=== PATIENT | male | born 1950 | race Caucasian/White ===

== ENCOUNTER → 2024-05-07 12:39 | Outpatient (CLI) | payer MEDICARE, OTHER, SELFPAY ==
--- NOTE | 2024-05-07 12:45 | EKG_ITS ---
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
[2024-05-07 14:04] LABS: Add Manual Diff / Slide Review NO; Basophils Absolute Auto 0 /uL (0-100); Basophils Percent Auto 0.4 % (0-2); Eosinophils Absolute Auto 200 /uL (0-450); Hematocrit 43.1 % (41-53); Lymphocytes Absolute Auto 1900 /uL (1100-4500); Lymphocytes Percent Auto 23.9 % (25-40); Mean Corpuscular HGB Conc 34.7 % (30-36); Mean Corpuscular Hemoglobin 31.2 PG (26-34); Mean Corpuscular Volume 89.8 fL (80-100); Monocytes Absolute Auto 700 /uL (0-900); Monocytes Percent Auto 9.1 % (3-14); Neutrophils Absolute Auto 5000 /uL (1500-7000); Neutrophils Percent Auto 64.6 % (50-75); Platelet Count 375 X10^3/uL (150-400); Red Cell Distribution Width 13.9 % (11.6-14.8); White Blood Cell Count 7.7 X10^3/uL (4.5-11.0)
[2024-05-07 14:06] LABS: Hemoglobin A1C% w Est Avg Glu 5.3 % (4.0-6.0)
[2024-05-07 14:16] LABS: Albumin 4.6 g/dL (3.5-5.0); BUN Creatinine Ratio 16.4 (6-22); Blood Urea Nitrogen 19 mg/dL (9-20); Calcium 9.6 mg/dL (8.4-10.2); Carbon Dioxide 29 mmol/L (22-32); Chloride 99 mmol/L (98-107); Estimated Glomerular Filt Rate > 60 mL/min (>60); Glucose 103 mg/dL (80-110); HEMOLYSIS < 15 (0-50); Potassium 3.7 mmol/L (3.4-5.1); Sodium 137 mmol/L (137-145)
[2024-05-07 14:27] LABS: Prealbumin 31.7 mg/dL (17.6-36.0)
[2024-05-07 14:55] LABS: Vitamin D 25 Hydroxy (D3) 16.5 ng/mL (30.0-100.0)
== END ==
PROVIDERS: PCP Registered Nurse; Referring Provider Orthopaedic Surgery Adult Reconstructive Orthopaedic Surgery; Visit Provider Orthopaedic Surgery Adult Reconstructive Orthopaedic Surgery
DX: Z01.818 Encounter for other preprocedural examination (principal); R73.9 Hyperglycemia, unspecified; E55.9 Vitamin D deficiency, unspecified; Z01.812 Encounter for preprocedural laboratory examination; R77.0 Abnormality of albumin
CPT/HCPCS: 36415; 80048; 82040; 82306; 83036; 84134; 85025; 93005

== ENCOUNTER 2025-02-24 12:07 | Emergency (ER) | payer MEDICARE, OTHER, SELFPAY ==
[2025-02-24] VITALS (9 sets, daily range): BP systolic 138–169; BP diastolic 73–91; PULSE 68–83; RESP 12–19; TEMP 36.6; O2SAT 96–98; BMI 31.6
--- NOTE | 2025-02-24 12:51 | EKG_ITS ---
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
--- NOTE | 2025-02-24 14:30 | DI.RAD.S_ITS ---
PROCEDURE: XR CHEST 1V INDICATIONS: back pain to L arm TECHNIQUE: One view of the chest was acquired. COMPARISON: None. FINDINGS: Surgical changes and devices: None. Lungs and pleura: Lungs are clear. No pleural effusions or pneumothorax. Mediastinum: Mediastinal contours appear normal. Heart size is normal. Bones and chest wall: No suspicious bony lesions. Overlying soft tissues appear unremarkable. IMPRESSION: No acute cardiopulmonary abnormality is seen. Approved by: Milton Simpson M.D. on 02/24/2025 at 13:55
--- NOTE | 2025-02-24 15:33 | EKG_ITS ---
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
[2025-02-24 15:34] LABS: Add Manual Diff / Slide Review NO; Hematocrit 41.5 % (41-53); Hemoglobin 14.6 g/dL (13.5-17.5); Lymphocytes Absolute Auto 1500 /uL (1100-4500); Mean Corpuscular HGB Conc 35.3 % (30-36); Mean Corpuscular Hemoglobin 30.8 PG (26-34); Mean Corpuscular Volume 87.3 fL (80-100); Platelet Count 383 X10^3/uL (150-400)
[2025-02-24 15:42] LABS: Alanine Aminotransferase 27 IU/L (<50); Albumin 4.8 g/dL (3.5-5.0); Albumin Globulin Ratio 1.6 (1.0-2.8); Alkaline Phosphatase 58 U/L (38-126); Blood Urea Nitrogen 16 mg/dL (9-20); Calcium 9.2 mg/dL (8.4-10.2); Carbon Dioxide 24 mmol/L (22-32); Chloride 101 mmol/L (98-107); Estimated Glomerular Filt Rate > 60 mL/min (>60); Globulin 3.0 g/dL (1.7-4.1); Glucose 105 mg/dL (70-99); HEMOLYSIS < 15 (0-50); Lipase 104 U/L (23-300); Magnesium 1.8 mg/dL (1.6-2.3); Potassium 4.0 mmol/L (3.4-5.1); Sodium 135 mmol/L (137-145); Total Protein 7.8 g/dL (6.3-8.2)
[2025-02-24 15:54] LABS: NT-proBNP (BNP-Adult 18+) 23 pg/mL (<125); Troponin I < 0.012 ng/mL (0.01-0.034)
--- NOTE | 2025-02-24 16:23 | ED.BACK ---
HPI - Back Pain/Injury General Chief Complaint: Back Pain/Injury Stated Complaint: bad back and shoulder pain more on lt side t-3 Time Seen by Provider: 02/24/25 14:29 Source: patient Limitations: no limitations History of Present Illness HPI Narrative: 74-year-old male history of hypertension, prediabetes with a complaint of thoracic back pain radiating to the left axilla. Patient states pain started about 3 days ago he does note that there seems like there is a knot. He states it radiates a little bit to the front but is less intense. Patient states flexion of the back rotation side bending and make it worse extension makes it feel better. He notes he did stop riding a recumbent bike and switch to an elliptical recently but denies any other trauma or injuries. He states no shortness of breath. No fevers or chills. No cold cough congestion symptoms. No nausea or vomiting. No new rash or skin changes no new numbness tingling or weakness. No new swelling in extremities. Pain does not radiate down his arm. Has not had any syncope. Home medications include losartan which he states he recently increased from 25-50 mg because his blood pressure was consistently over 130, Lexapro and metformin. He does not take any aspirin or anticoagulants. He states he has a knee surgery in June, he had a colonoscopy on February 11 which was uneventful and negative. Warts an allergy to iodine. No tobacco, alcohol or recreational drugs. Notes he had a cardiac catheterization 2008 which was negative he had had a stress test after that states he has a no known family history of cardiac, embolic or vascular disease. Related Data Home Medications ?Medication ?Instructions ?Recorded ?Confirmed escitalopram oxalate 10 mg tablet 10 mg PO DAILY 10/11/24 02/05/25 (Lexapro) metformin 500 mg tablet 500 mg PO BID 10/11/24 02/05/25 losartan 25 mg tablet 25 mg PO DAILY 02/05/25 02/05/25 Allergies Allergy/AdvReac Type Severity Reaction Status Date / Time ciprofloxacin Allergy Mild pts father Verified 02/24/25 12:42 from drug iodine AdvReac Intermediate Rash Verified 02/24/25 12:42 Review of Systems Review of Systems ROS Unobtainable: All systems reviewed & are unremarkable except as noted in HPI and below Patient History Surgical History Status post left partial knee replacement Social History Smoking Status: Never smoker Smoking Status: Never smoker Exam Narrative Exam Narrative: GENERAL: Alert and oriented x three, male in mild distress HEENT: Head normocephalic, atraumatic, EOMI, pupils reactive, face symmetric, moist mucous membranes NECK: Supple, full range of motion CARDIOVASCULAR: Regular rate and rhythm without murmurs, rubs or gallops. RESPIRATORY: Breath sounds equal bilaterally, no wheezes rales or rhonchi. ABDOMEN: Soft, nontender. Normoactive bowel sounds all 4 quadrants. No guarding or rebound, rigidity, no mass : No CVA tenderness BACK: No cervical, thoracic or lumbar vertebral point tenderness. Patient has a palpable knot lateral to the thoracic spine around T7-8 does have an increase in pain with palpation. No warmth erythema, no swelling. Patient has normal range of motion. Patient's gait is normal. 5/5 muscle strength upper and lower extremities. Normal range of motion. Normal sensation. EXTREMITIES: Normal range of motion, no clubbing or edema. Neurovascularly intact NEUROLOGICAL: Cranial nerves II through XII grossly intact. Moving all extremities SKIN: Warm, dry, no petechiae, no rashes or lesions. Initial Vital Signs Initial Vital Signs: Vital Signs Temperature 97.9 F 02/24/25 12:42 Pulse Rate 79 02/24/25 12:42 Respiratory Rate 17 02/24/25 12:42 Blood Pressure 169/91 H 02/24/25 12:42 Pulse Oximetry 96 02/24/25 12:42 Oxygen Delivery Method Room Air 02/24/25 12:42 Course Orders Ordered: ED Orders 02/24/25 12:46 EKG-12 Lead Stat 02/24/25 14:30 XR chest 1V Stat [facility] Creatine Kinase MB Routine EKG-12 Lead Stat 02/24/25 15:23 Complete Blood Count AUTO DIFF Stat Comprehensive Metabolic Panel Stat Lipase Stat Magnesium Stat NT-proBNP (BNP-Adult 18+) Stat Troponin I Stat 02/24/25 17:20 Troponin I Stat 02/24/25 17:23 EKG-12 Lead Stat Discontinued Medications Acetaminophen (Acetaminophen 325 Mg Tablet) 975 mg PO NOW ONE Stop: 02/24/25 16:49 Last Admin: 02/24/25 16:58 Dose: 975 mg Documented By: SGF Vital Signs Vital signs: Vital Signs - 8 hr 02/24/25 12:42 02/24/25 15:19 02/24/25 15:23 Temperature 97.9 F Pulse Rate 79 73 Respiratory Rate 17 19 Blood Pressure 169/91 H 140/84 Pulse Oximetry 96 Oxygen Delivery Method Room Air 02/24/25 15:23 02/24/25 15:30 02/24/25 15:30 Temperature Pulse Rate 73 69 Respiratory Rate 12 16 Blood Pressure 138/76 Pulse Oximetry 98 97 Oxygen Delivery Method 02/24/25 16:00 02/24/25 16:00 02/24/25 16:30 Temperature Pulse Rate 71 Respiratory Rate 14 Blood Pressure 145/82 H 151/85 H Pulse Oximetry 98 Oxygen Delivery Method 02/24/25 16:30 02/24/25 17:00 02/24/25 17:00 Temperature Pulse Rate 70 83 Respiratory Rate 16 Blood Pressure 157/73 H Pulse Oximetry 96 97 Oxygen Delivery Method 02/24/25 17:20 02/24/25 17:20 02/24/25 17:30 Temperature Pulse Rate 68 69 Respiratory Rate Blood Pressure 140/80 Pulse Oximetry 96 96 Oxygen Delivery Method 02/24/25 17:30 Temperature Pulse Rate Respiratory Rate 16 Blood Pressure 151/76 H Pulse Oximetry Oxygen Delivery Method MDM - Back Pain/Injury Lab Data 02/24/25 15:23 02/24/25 15:23 Labs: Lab Results 02/24/25 02/24/25 Range/Units 15:23 17:20 WBC 9.4 (4.5-11.0) X10^3/uL RBC 4.75 (4.5-5.9) X10^6/uL Hgb 14.6 (13.5-17.5) g/dL Hct 41.5 (41-53) % MCV 87.3 (80-100) fL MCH 30.8 (26-34) PG MCHC 35.3 (30-36) % RDW 14.2 (11.6-14.8) % Plt Count 383 (150-400) X10^3/uL Neut % (Auto) 76.0 H (50-75) % Lymph % (Auto) 15.8 L (25-40) % [place] % (Auto) 6.9 (3-14) % Eos % (Auto) 0.5 L (2-4) % Baso % (Auto) 0.8 (0-2) % Neut # (Auto) 7100 H (3487-1798) /uL Lymph # (Auto) 1500 (5052-5094) /uL [place] # (Auto) 700 (0-900) /uL Eos # (Auto) 100 (0-450) /uL Baso # (Auto) 100 (0-100) /uL Sodium 135 L (137-145) mmol/L Potassium 4.0 (3.4-5.1) mmol/L Chloride 101 (98-107) mmol/L Carbon Dioxide 24 (22-32) mmol/L BUN 16 (9-20) mg/dL Creatinine 1.06 (0.66-1.25) mg/dL Estimated GFR > 60 (>60) mL/min BUN/Creatinine Ratio 15.1 (6-22) Glucose 105 H (70-99) mg/dL Calcium 9.2 (8.4-10.2) mg/dL Magnesium 1.8 (1.6-2.3) mg/dL Total Bilirubin 0.5 (0.2-1.3) mg/dL AST 36 (17-59) IU/L ALT 27 (<50) IU/L Alkaline Phosphatase 58 (38-126) U/L Troponin I < 0.012 < 0.012 (0.01-0.034) ng/mL NT-Pro-B Natriuret Pep 23 (<125) pg/mL Total Protein 7.8 (6.3-8.2) g/dL Albumin 4.8 (3.5-5.0) g/dL Globulin 3.0 (1.7-4.1) g/dL Albumin/Globulin Ratio 1.6 (1.0-2.8) Lipase 104 (23-300) U/L ECG Data Attestation: I personally reviewed and interpreted this ECG as follows: Prior ECG tracings: available for review Interpretation: Sinus rhythm rate of 77 [place] 144 QRS is 76 QTC of 434, no acute ST-elevation patient does have inverted slightly depressed T-waves in V3 through 6. Repeat EKG shows sinus rhythm premature atrial complex rate of 72 [place] 160 QRS is 76 QTC of 438, patient has persistent T-wave inversion in V4 5 6. This is present in patient's prior EKG from 05/07/2024. MDM Narrative Medical decision making narrative: Chest x-ray shows no acute cardiopulmonary abnormality. Labs show normal white count hemoglobin and platelets, chemistries shows sodium 135 otherwise normal electrolytes BUN creatinine glucose of 105 LFTs are negative troponins less than 0.012 with a BNP of 23. Repeat troponins less than 0.012 EKG sinus rhythm atrial complexes patient has T-wave inversion V4 5 6 present on prior EKG from 2023. 74-year-old male with reproducible pain on exam, suspect patient has a more musculoskeletal source has had 3 days of symptoms with negative cardiac workup, does have T-wave inversion but does not appear to be new. Patient has a acetaminophen Discharge Plan Departure Patient Disposition: Home Clinical Impression: Back pain, thoracic Instructions: DI for Thoracic Back Pain Activity Restrictions/Additional Instructions: Follow up as needed. Your symptoms today seem most likely musculoskeletal but if they are persisting please follow up. You can take acetaminophen a 1000 mg every 6 hours as needed. Please return if you have new or worsening symptoms, any rash or skin changes, new chest pain, new shortness of breath, fevers, passing out or other new or concerning changes. Prescriptions: No Action losartan 25 mg tablet 25 mg PO DAILY metformin 500 mg tablet 500 mg PO BID escitalopram oxalate [Lexapro] 10 mg tablet 10 mg PO DAILY Referrals: Jahaira Mitchell FNP-C [Primary Care Provider, Family Practice] Stand Alone Forms: Patient Portal/API
[2025-02-24] MEDS: ACETAMINOPHEN 325 MG TABLET 975 MG PO (16:58)
--- NOTE | 2025-02-24 17:23 | EKG_ITS ---
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
[2025-02-24 17:52] LABS: Troponin I < 0.012 ng/mL (0.01-0.034)
[2025-02-25 13:36] LABS: Labcorp Creatine Kinase MB 2.1 ng/mL (0.0-10.4)
== END 2025-02-24 18:23 | disposition home or self-care (01) ==
PROVIDERS: Emergency Provider Emergency Medicine; PCP Registered Nurse
DX: M54.6 Pain in thoracic spine (principal)
CPT/HCPCS: 36415; 71045; 80053; 82553; 83690; 83735; 83880; 84484; 85025; 93005; 99284

== ENCOUNTER 2025-03-20 06:47 | Day surgery (SDC) | payer MEDICARE, OTHER, SELFPAY ==
[2025-03-08 08:59] VITALS: BMI 31.6
[2025-03-20 07:07] VITALS: BP 144/86; PULSE 73; RESP 16; TEMP 36.3; O2SAT 95
[2025-03-20] MEDS: ACETAMINOPHEN 325 MG TABLET 975 MG PO (07:19)
[2025-03-20] MEDS: LACTATED RINGERS 1,000 ML 42 ML IV (07:19)
--- NOTE | 2025-03-20 08:24 | PM.PREOP ---
Pre-operative Note COVID-19 COVID-19 status: Not tested Interval Note History & Physical reviewed/Exam performed by Physician: Yes Changes to H&P: No
--- NOTE | 2025-03-20 09:23 | SUR.OPER ---
Supine on padded OR bed, head on pillow, arms secured on padded arm boards at <90 degrees abduction, left arm on arm board, prepped into field, legs uncrossed, safety belt at thigh, tape over blanket over lower legs.
[2025-03-20 10:00] VITALS: BP 126/72; PULSE 91; RESP 10; TEMP 36.7; O2SAT 94
--- NOTE | 2025-03-20 10:00 | P.OP_ITS ---
Operative Date/Time/Diagnoses Date of procedure: 03/20/25 Time of procedure: 08:58 Pre-op diagnosis: Left subluxing ulnar nerve at the elbow and left Carpal Tunnel Syndrome Post-op diagnosis: same Procedure & Clinicians Procedure: ) left Carpal Tunnel Release, Open 2) anterior transposition of ulnar nerve at the elbow Same procedure(s) as scheduled: Yes Surgeon: Yazmin Shahid Assisted?: Yes Continuous Miner: Giana Mas Anesthesia Type: General Operative Notes Findings: see below Closure Type: primary Specimen(s): none sent Applied: cast(s) (posterior splint) Estimated Blood Loss (mL): 5 Blood products transfused: none Tourniquet time (min): 50 Procedure in detail: Preoperative diagnosis: ?Left subluxing ulnar nerve at the elbow and left Carpal Tunnel Syndrome Procedure performed: ?1) Carpal Tunnel Release, Open 2) anterior transposition of ulnar nerve at the elbow Postoperative diagnosis: Same Primary Surgeon: Yazmin Shahid, DO Continuous Miner: Giana Mas PA-C Anesthesia: ?General EBL: 5 ml Tourniquet: 50 minutes @ 200 mmHg Indication For Surgery: Patient presented with signs and symptoms of carpal tunnel and cubital tunnel syndrome.? Conservative treatment did not result in adequate symptom improvement. The risks, benefits, and alternatives were discussed. Risks include pain, bleeding, infection, damage to nearby structures, pillar pain, wound healing complications, thumb weakness, numbness, lack of symptom relief, need for further surgery, DVT, PE, stroke, and . Written consent was obtained. Operative Findings: Thickened transverse carpal ligament was released.? No carpal tunnel masses. Subluxing ulnar nerve. Procedure in Detail: The patient was met in the pre-operative hold area. Consent was verified and operative extremity was signed. The patient then met with anesthesia and was brought back to the operating room. The patient was placed supine on the operating table. Anesthetic was administered. The extremity was then prepped and draped in the usual sterile fashion. A timeout was performed per protocol. An 8 cm incision was made at the medial aspect of the elbow centered between the medial epicondyle and olecranon.? Dissection was taken down to the cubital tunnel and the ulnar nerve was exposed and the cubital was released dissection was taken up proximally and to ensure that the ulnar nerve was completely released proximally and distally the nerve was traced into the flexor carpi ulnaris muscle belly the overlying fascia was released and I ensured that the nerve was free distally as well.? After complete release of the ulnar nerve I then ranged the elbow with flexion and extension and the nerve subluxed. I then made a subcutaneous adipose flap and an anterior transposition of the ulnar nerve was performed. with 2-0 ethibond sutured down to the medial epicondyle. This maintained a nice adipose tunnel for the transposed nerve. I ranged the elbow to ensure that the ulnar nerve was not pinched. A 3cm longitudinal incision was made in line with the ulnar border of the ring finger starting at Miller's Cardinal line distally. This was just radial to the hook of the hamate. Sharp dissection was brought down through the palmar fascia. Retractors were placed. The transverse carpal ligament was identified and a knife was used to incise it longitudinally until fat was seen distally in the palm. Tenotomy scissors were then used to create a pocket just superficial to the transverse carpal ligament and a freer was placed. The scissors were then placed deep to the ligament to bluntly separate the contents of the canal from ligament. I then pointed the tips of the scissors ulnarly and completed the release 2 cm into the antebrachial fascia. A freer elevator was used to confirm complete release both proximally and distally. The wound was then irrigated copiously and closed with 4-0 nylon in a horizontal mattress configuration. The elbow incision was closed with 2-0 Vicryl and 3-0 Monocryl.? A sterile dressing was applied consisting of Xeroform over the carpal tunnel incision and Steri-Strips were used over the medial elbow incision next plain gauze was used as well as sterile Webril and a posterior splint was placed. at the end of the case 20 cc 0.5% Marcaine plain was injected into the incision sites.? The patient was awoken and taken to the PACU in stable condition.? All counts were correct at the end of the case.? Complications: none Post-operative Condition: stable Disposition: PACU
[2025-03-20 10:05] VITALS: BP 136/78; PULSE 81; RESP 11; O2SAT 93
[2025-03-20 10:13] VITALS: BP 130/73; PULSE 85; RESP 19; O2SAT 95
[2025-03-20 10:18] VITALS: BP 130/71; PULSE 85; RESP 15; TEMP 36.9; O2SAT 96
[2025-03-20 10:32] VITALS: BP 124/73; PULSE 87; RESP 15; TEMP 36.7; O2SAT 94
== END 2025-03-20 11:00 | disposition home or self-care (01) ==
PROVIDERS: PCP Registered Nurse; Referring Provider Orthopaedic Surgery; Visit Provider Orthopaedic Surgery
PROC: (CPT 64721; principal; 2025-03-20 09:00)
DX: G56.02 Carpal tunnel syndrome, left upper limb (principal); G56.22 Lesion of ulnar nerve, left upper limb; S53.13 Medial subluxation and dislocation of ulnohumeral joint; I10 Essential (primary) hypertension; R73.03 Prediabetes; F41.9 Anxiety disorder, unspecified; E66.9 Obesity, unspecified; Z68.31 Body mass index [BMI] 31.0-31.9, adult; Z79.84 Long term (current) use of oral hypoglycemic drugs; Z87.891 Personal history of nicotine dependence
CPT/HCPCS: 64718; 64721; 82962; J0689; J1100; J1885; J2405; J2704; J3010; J7120